=== PATIENT | female | born 1955 | race Caucasian/White ===

== ENCOUNTER → 2023-06-24 | Outpatient (CLI) | payer OTHER ==
--- NOTE | 2023-06-25 21:57 | US ---
EXAMINATION TYPE: US thyroid st tissue head/neck DATE OF EXAM: 06/24/2023 COMPARISON: 09/15/14 CLINICAL INDICATION: Female, 68 years old with history of E04.1 nodule; RT nodule scanned in 2013, no new symptoms or abnormal labs GLAND SIZE: Right Lobe: 4.2x1.7x2.0 cm Overall Parenchyma: homogenous Left Lobe: 4.9x2.0x1.7 cm Overall Parenchyma: homogeneous Isthmus Thickness: 0.4 cm NODULES RIGHT: # of nodules measured on right: 1 1. 0.7 X 0.5 x 0.7 cm, upper lateral, solid or almost completely solid, isoechoic nodule, which is wider than tall, with smooth margins, without echogenic foci. Prior size: 0.6 x 0.4 x 0.6 cm LEFT: # of nodules measured on left: 1 1. 1.5 X 1.0 x 1.3 cm, mid mid, mixed cystic and solid, isoechoic nodule, which is wider than tall, with smooth margins, without echogenic foci. TR4 ISTHMUS: # of nodules measured in the isthmus: 0 Bilateral neck scanned, no evidence of lymphadenopathy. stable Rt thyroid nodule, new large Lt nodule >1cm IMPRESSION: New Left thyroid nodule is moderately suspicious. Consider fine-needle aspiration. 2017 ACR TI-RADS LEVEL: *Highest TI-RADS level nodule reported
== END | disposition home or self-care (01) ==
LOC: RADUSWWP 15:56
PROVIDERS: ATTEND Family Medicine
DX: E04.2 Nontoxic multinodular goiter (principal)
CPT/HCPCS: 76536